=== PATIENT | female | born 1955 | race American Indian/Alaskan Native ===

== ENCOUNTER 2016-07-29 19:21 | Observation (INO) | payer MEDICAID ==
[2016-07-29 19:48] VITALS: BMI 29.5
--- NOTE | 2016-07-29 20:17 | ED PDOC ---
Arrival/HPI - General Chief Complaint: Back Pain Time Seen by Provider: 07/29/16 19:27 Historian: Patient - History of Present Illness Narrative History of Present Illness (Text): 07/29/16 19:27 A 60 year old female, whose past medical history includes lumbar spinal stenosis , presents to the emergency department complaining of worsening lower back pain for the past couple of days. Patient states she is currently in the process of changing pain management doctors due to insurance purposes. Patient reports she took here usual pain medication with very minimal relief. Patient states it is difficulty for him to ambulate because of the pain. He denies any urinary/bowel changes, saddle anesthesia, fever, chills, recent trauma, chest pain, shortness of breath or any other complaints. Time/Duration: Other Symptom Onset: Gradual Symptom Course: Worsening Quality: Other Activities at Onset: Rest Context: Home Past Medical History - Provider Review Nursing Documentation Reviewed: Yes - Infectious Disease Hx of Infectious Diseases: None - Cardiac Hx Hypertension: Yes - Pulmonary Hx Chronic Obstructive Pulmonary Disease (COPD): Yes - Neurological HX Cerebrovascular Accident: Yes - Endocrine/Metabolic Hx Hypothyroidism: Yes - Musculoskeletal/Rheumatological Hx Spinal Stenosis: Yes - Gastrointestinal Other/Comment: Gall Stones - Psychiatric Hx Anxiety: Yes Hx Depression: Yes Hx Substance Use: No Other/Comment: Insomnia - Surgical History Hx Tubal Ligation: Yes - Anesthesia Hx Anesthesia: Yes Hx Anesthesia Reactions: No Hx Malignant Hyperthermia: No Family/Social History - Physician Review Nursing Documentation Reviewed: Yes Family/Social History: No Known Family HX, Unknown Family HX Smoking Status: Never Smoked Hx Alcohol Use: No Hx Substance Use: No Allergies/Home Meds Allergies/Adverse Reactions: Allergies Penicillins Allergy (Verified 07/29/16 19:39) ITCHING Home Medications: Home Meds Medication Instructions Recorded Confirmed ALPRAZolam [Xanax] 1 tab PO HS 07/29/16 07/29/16 Acetaminophen/Codeine 1 tab PO Q6H PRN 07/29/16 07/29/16 [Tylenol/Codeine 300 MG/30 MG] Albuterol 0.083% [Albuterol 0.083% 1 vial IH Q4H PRN 07/29/16 07/29/16 Inhal Jossie (2.5 mg/3 ml) UD] Alendronate Sodium [Binosto] 1 tab PO Q7D 07/29/16 07/29/16 Aspirin [Adult Low Dose Aspirin EC] 1 tab PO DAILY 07/29/16 07/29/16 Gabapentin [Neurontin] 800 mg PO BID 07/29/16 07/29/16 Losartan [Cozaar] 1 tab PO DAILY 07/29/16 07/29/16 Nebivolol [Bystolic] 1 tab PO DAILY 07/29/16 07/29/16 Topiramate [Topamax] 1 tab PO BID 07/29/16 07/29/16 Zolpidem [Ambien] 1 tab PO HS 07/29/16 07/29/16 Review of Systems - Physician Review All systems were reviewed & negative as marked: Yes - Review of Systems Constitutional: absent: Fevers, Other (chills; recent truama) Respiratory: absent: SOB Cardiovascular: absent: Chest Pain Gastrointestinal: absent: Stool Changes Genitourinary Female: absent: Urine Output Changes Musculoskeletal: Back Pain Neurological: absent: Other (saddle anesthesia) Physical Exam Vital Signs Reviewed: Yes Vital Signs Pulse Resp BP Pulse Ox 07/29/16 20:14 85 18 182/106 H 98 Blood Pressure: Hypertensive Pulse: Regular Respiratory Rate: Normal Appearance: Positive for: Well-Appearing, Non-Toxic, Comfortable Pain Distress: None Mental Status: Positive for: Alert and Oriented X 3 - Systems Exam Head: Present: Atraumatic, Normocephalic Pupils: Present: PERRL Extroacular Muscles: Present: EOMI Conjunctiva: Present: Normal Mouth: Present: Moist Mucous Membranes Neck: Present: Normal Range of Motion Respiratory/Chest: Present: Clear to Auscultation, Good Air Exchange. No: Respiratory Distress, Accessory Muscle Use Cardiovascular: Present: Regular Rate and Rhythm, Normal S1, S2. No: Murmurs Abdomen: Present: Normal Bowel Sounds. No: Tenderness, Distention, Peritoneal Signs Back: Present: Pain with Leg Raise (mild discomfort with bilateral straight leg raise) Upper Extremity: Present: Normal Inspection, Normal ROM, Neurovascularly Intact. No: Cyanosis, Edema Lower Extremity: Present: Normal Inspection, Normal ROM, Neurovascularly Intact. No: Edema Neurological: Present: GCS=15, CN II-XII Intact, Speech Normal, Motor Func Grossly Intact, Normal Sensory Function Skin: Present: Warm, Dry, Normal Color. No: Rashes Psychiatric: Present: Alert, Oriented x 3, Normal Insight, Normal Concentration Medical Decision Making ED Course and Treatment: 07/29/16 19:27 Impression: A 60 year old female with chronic back pain. Differential Diagnosis include but are not limited to: chronic back pain Plan: -- Spinal Canal Lumbar MRI -- Decadron, Flexeril and Toradol -- Reassess and disposition Progress Notes: 07/30/16 00:38 MR Lumbar Spine Without Intravenous Contrast reviewed FINDINGS: LIMITATIONS: Exam is somewhat limited by mild streak/motion artifact. VERTEBRAE: No evidence of significant vertebral subluxation or height loss. No findings to suggest acute vertebral compression fractures. MARROW: No evidence of significant vertebral marrow signal abnormality. INTERSPACES: Mild multilevel degenerative disc disease, involving the lower lumbar spine. SPINAL CORD: No evidence of significant signal abnormality in the conus medullaris, which terminates at the L1 level. 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 SOFT TISSUES: Fluid is seen in the subcutaneous fat diffusely. This could represent dependent edema. There is no evidence of a focal soft tissue fluid collection. DISCS/SPINAL CANAL/NEURAL FORAMINA: L1-L2 level: Unremarkable. L2-L3 level: Mild facet joint degenerative changes. L3-4 level: Disc desiccation and a mild posterior disc bulge. Mild facet joint arthropathy. No evidence of significant spinal canal stenosis. L4-5 level: Disc desiccation and a mild posterior disc bulge. Mild facet joint arthropathy. There is associated mild narrowing of the neural foramina bilaterally. No evidence of significant spinal canal stenosis. L5-S1 level: Disc desiccation and a mild posterior disc bulge. Bilateral facet joint arthropathy. No evidence of significant spinal canal stenosis. IMPRESSION: - No evidence of acute compression fractures, disc herniation or other acute abnormality. - No evidence of significant spinal canal stenosis. - Mild, multilevel degenerative changes, as described. - See above for remaining findings. - RAD Interpretation Radiology Orders: 07/29/16 19:56 SPINAL CANAL LUMBAR W/O CONT [MRI] Stat - Medication Orders Current Medication Orders: Discontinued Medications Cyclobenzaprine HCl (Flexeril) 10 mg PO ONCE ONE Stop: 07/29/16 19:59 Last Admin: 07/29/16 20:29 Dose: 10 MG Dexamethasone (Decadron Inj) 10 mg IVP ONCE ONE Stop: 07/29/16 20:00 Last Admin: 07/29/16 20:29 Dose: 10 MG IVP Administration Document 07/29/16 20:29 MR (Rec: 07/29/16 20:29 MR [id number]) Charges for Administration # of IVP Administrations 1 Diazepam (Valium) 5 mg IVP ONCE ONE PRN Reason: Protocol Stop: 07/29/16 20:54 Last Admin: 07/29/16 21:10 Dose: 5 MG Behavioural Document 07/29/16 21:10 MR (Rec: 07/29/16 21:11 MR [id number]) Maintenance Maintenance Dose No Nonmedicinal Nonmedicinal Interventions Therapeutic Communication Activity Give food/fluids Behavior Behavior for Medication: Anxiety IVP Administration Document 07/29/16 21:10 MR (Rec: 07/29/16 21:11 MR [id number]) Charges for Administration # of IVP Administrations 1 Ketorolac Tromethamine (Toradol) 30 mg IVP ONCE ONE Stop: 07/29/16 19:59 Last Admin: 07/29/16 20:29 Dose: 30 MG IVP Administration Document 07/29/16 20:29 MR (Rec: 07/29/16 20:29 MR [id number]) Charges for Administration # of IVP Administrations 1 Morphine Sulfate (Morphine) 4 mg IVP STAT STA Stop: 07/29/16 23:37 Last Admin: 07/29/16 23:54 Dose: 4 MG MAR Pain Assessment Document 07/29/16 23:54 MR (Rec: 07/29/16 23:58 MR [id number]) Pain Reassessment Is this a pain reassessment? Yes Sleep Is patient sleeping during reassessment? No Presence of Pain Presence of Pain Yes Pain Scale Used Pain Scale Used Numeric Location Left, Right or Bilateral Bilateral Pain Location Body Site Leg Description Description Constant Intensity of Pain at present 9 Pain Behavior Restlessness Aggravating Factors Changing Position Alleviating Factors/Management Medication Techniques Alleviating Factors Medication IVP Administration Document 07/29/16 23:54 MR (Rec: 07/29/16 23:58 MR [id number]) Charges for Administration # of IVP Administrations 1 ED OBSERVATION Discharge: Yes Date of observation admission: 07/29/16 Time of observation admission: 20:00 - Observation admission statement Patient is being placed in observation because:: Back pain - Goals of Observation Goals of observation are:: Treat symptoms/evaluate for any acute findings - Progress Note Progress Note: 07/30/16 02:17 Pt. is pain free.Will d/c for follow up outpatient pain management - Scribe Statement The provider has reviewed the documentation as recorded by the Mirtaibbrielle Bernard Provider Scribe Attestation: All medical record entries made by the Mirtaibbrielle were at my direction and personally dictated by me. I have reviewed the chart and agree that the record accurately reflects my personal performance of the history, physical exam, medical decision making, and the department course for this patient. I have also personally directed, reviewed, and agree with the discharge instructions and disposition. Disposition/Present on Arrival - Present on Arrival Any Indicators Present on Arrival: No History of DVT/PE: No History of Uncontrolled Diabetes: No Urinary Catheter: No History of Decub. Ulcer: No History Surgical Site Infection Following: None - Disposition Have Diagnosis and Disposition been Completed?: Yes Diagnosis: Back pain, Degenerative disc disease, lumbar Disposition: HOME/ ROUTINE Disposition Time: 02:19 Patient Plan: Discharge Condition: GOOD
[2016-07-29] MEDS ORDERED: diaZEpam 10 mg/2 ml Inj IVP ONE (20:53)
[2016-07-29] MEDS ORDERED: Morphine 4 mg/ml ISec IVP STA (23:36)
--- NOTE | 2016-07-30 00:29 | MRI ---
EXAM: MR Lumbar Spine Without Intravenous Contrast CLINICAL HISTORY: 60 years old, female; Pain; Other: Spinal stenosis; Additional info: HX. Spinal stenosis/back pain/difficulty ambulatin TECHNIQUE: Magnetic resonance images of the lumbar spine without intravenous contrast in multiple planes. EXAM DATE/TIME: 07/29/2016 7:56 PM COMPARISON: No relevant prior studies available. FINDINGS: LIMITATIONS: Exam is somewhat limited by mild streak/motion artifact. VERTEBRAE: No evidence of significant vertebral subluxation or height loss. No findings to suggest acute vertebral compression fractures. MARROW: No evidence of significant vertebral marrow signal abnormality. INTERSPACES: Mild multilevel degenerative disc disease, involving the lower lumbar spine. SPINAL CORD: No evidence of significant signal abnormality in the conus medullaris, which terminates at the L1 level. 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 SOFT TISSUES: Fluid is seen in the subcutaneous fat diffusely. This could represent dependent edema. There is no evidence of a focal soft tissue fluid collection. DISCS/SPINAL CANAL/NEURAL FORAMINA: L1-L2 level: Unremarkable. L2-L3 level: Mild facet joint degenerative changes. L3-4 level: Disc desiccation and a mild posterior disc bulge. Mild facet joint arthropathy. No evidence of significant spinal canal stenosis. L4-5 level: Disc desiccation and a mild posterior disc bulge. Mild facet joint arthropathy. There is associated mild narrowing of the neural foramina bilaterally. No evidence of significant spinal canal stenosis. L5-S1 level: Disc desiccation and a mild posterior disc bulge. Bilateral facet joint arthropathy. No evidence of significant spinal canal stenosis. IMPRESSION: - No evidence of acute compression fractures, disc herniation or other acute abnormality. - No evidence of significant spinal canal stenosis. - Mild, multilevel degenerative changes, as described. - See above for remaining findings.
[2016-07-30 03:58] VITALS: BP 121/81; PULSE 82; RESP 17; O2SAT 94
== END 2016-07-30 02:18 | disposition home or self-care (01) ==
LOC: ED 19:21 → EROBSV 20:00 → MERGE 20:00
PROVIDERS: ADMIT Emergency Medicine; ATTEND Emergency Medicine
DX: M51.36 Other intervertebral disc degeneration, lumbar region (principal); M54.9 Dorsalgia, unspecified; I10 Essential (primary) hypertension
CPT/HCPCS: 72148; 96374; 96375; 99283; G0378; J1100; J1885; J2270; J3360